=== PATIENT | female | born 1940 | race Caucasian/White ===

== ENCOUNTER 2016-10-09 10:22 | Inpatient (IN) | payer OTHER ==
[~2016-10-09] VITALS: Ht 157.5 cm; Wt 74.8 kg
[2016-10-09] MEDS ORDERED: SALINE FLUSH 10 ML FLUSH PRN (11:40)
[2016-10-09] MEDS ORDERED: BISACODYL EC 5 MG TAB PO PRN (11:40)
[2016-10-09] MEDS ORDERED: ONDANSETRON 4 MG VIAL IV PRN (11:40)
[2016-10-09] MEDS ORDERED: NEB-XOPENEX 1.25 MG/3 ML INH SCH (12:10)
[2016-10-09] MEDS ORDERED: PANTOPRAZOLE 40 MG TAB PO SCH (12:10)
[2016-10-09 13:22] VITALS: BP_SYST 150; RESP 18; TEMP 97.6
[2016-10-09 13:23] VITALS: Ht 157.5 cm; Wt 74.8 kg
[2016-10-09] MEDS ORDERED: KCL CR 10 MEQ CAP PO ONE ×3 (14:10→22:00)
[2016-10-09] MEDS ORDERED: Furosemide 100 MG/10 ML VIAL IV ONE (14:10)
[2016-10-09] MEDS: Carvedilol 3.125 MG TAB PO SCH ×2 (14:15→20:23)
[2016-10-09] MEDS: ESCITALOPRAM 10 MG TAB PO SCH (14:16)
[2016-10-09] MEDS: DILTIAZEM CD 120 MG CAP PO SCH (14:17)
[2016-10-09] MEDS: DIGOXIN 0.125 MG TAB PO SCH (15:15)
[2016-10-09 15:19] VITALS: RESP 18
[2016-10-09] MEDS: NEB-XOPENEX 0.63 MG/3 ML INH SCH ×2 (15:23→19:00)
[2016-10-09] MEDS: CEFTRIAXONE 1 GM in SODIUM CHLORIDE 0.9% 50 ML IV SCH (15:25)
[2016-10-09] MEDS: ACETAMINOPHEN 325 MG TAB PO PRN ×2 (15:26→22:48)
[2016-10-09] MEDS: PANTOPRAZOLE 40 MG TAB PO SCH (15:27)
[2016-10-09] MEDS ORDERED: NEB-XOPENEX 0.63 MG/3 ML INH SCH (19:00)
[2016-10-09] MEDS: NEB-BUDESONIDE 0.5 MG INH SCH (19:00)
[2016-10-09 20:04] VITALS: BP_SYST 136; RESP 18; TEMP 98
[2016-10-09] MEDS: POLYETHYLENE GLYCOL 17 GM PACKET PO SCH (20:22)
[2016-10-09] MEDS: CARBIDOPA PO SCH (20:22)
[2016-10-09] MEDS: MONTELUKAST 10 MG TAB PO SCH (20:22)
[2016-10-09] MEDS: LEVODOPA PO SCH (20:22)
[2016-10-09] MEDS: DONEPEZIL HCL 5 MG TAB PO SCH (20:23)
[2016-10-09] MEDS: DOCUSATE SOD 100 MG CAP PO SCH (20:23)
[2016-10-09] MEDS: SALINE FLUSH 10 ML FLUSH SCH (20:27)
[2016-10-09 23:26] VITALS: BP_SYST 113; RESP 16; TEMP 97.5
[2016-10-10] VITALS (18 sets, daily range): BP systolic 148–184; RESP 16–32; TEMP 97.2–98.2
[2016-10-10] MEDS: SODIUM CHLORIDE 0.9% FLUSH BAG 500 ML IV SCH (04:32)
[2016-10-10] MEDS: PANTOPRAZOLE 40 MG TAB PO SCH ×2 (06:34→20:47)
[2016-10-10] MEDS: NEB-BUDESONIDE 0.5 MG INH SCH ×2 (08:22→20:16)
[2016-10-10] MEDS: NEB-XOPENEX 0.63 MG/3 ML INH SCH ×2 (08:22→20:16)
[2016-10-10] MEDS ORDERED: EPOETIN 40,000 UNIT VIAL SUBQ ONE (09:00)
[2016-10-10] MEDS: SALINE FLUSH 10 ML FLUSH SCH ×2 (09:14→20:49)
[2016-10-10] MEDS: CEFTRIAXONE 1 GM in SODIUM CHLORIDE 0.9% 50 ML IV SCH (09:15)
[2016-10-10] MEDS: ESCITALOPRAM 10 MG TAB PO SCH (09:17)
[2016-10-10] MEDS: Furosemide 40 MG TAB PO SCH (09:17)
[2016-10-10] MEDS: Carvedilol 3.125 MG TAB PO SCH ×2 (09:17→20:48)
[2016-10-10] MEDS: ENOXAPARIN 30 MG/0.3 ML SYR SUBQ SCH (09:17)
[2016-10-10] MEDS: KCL CR 10 MEQ CAP PO SCH (09:18)
[2016-10-10] MEDS: DILTIAZEM CD 120 MG CAP PO SCH (09:24)
[2016-10-10] MEDS: ACETAMINOPHEN 325 MG TAB PO PRN ×2 (09:25→21:04)
[2016-10-10] MEDS ORDERED: Furosemide 20 MG/2 ML VIAL IV ONE ×2 (09:50)
[2016-10-10] MEDS ORDERED: Furosemide 40 MG/4 ML VIAL IV ONE (09:55)
[2016-10-10] MEDS ORDERED: LISINOPRIL 20 MG TAB PO ONE (10:45)
[2016-10-10] MEDS: BENZONATATE 100 MG CAP PO SCH ×3 (10:45→21:02)
[2016-10-10] MEDS: IRON SUCROSE COMPLEX 400 MG in SODIUM CHLORIDE 0.9% 250 ML IV SCH (11:28)
[2016-10-10] MEDS ORDERED: KCL CR 10 MEQ CAP PO ONE ×3 (12:00→21:00)
[2016-10-10] MEDS: PROMETHAZINE/COD 5 ML UDC PO PRN (20:46)
[2016-10-10] MEDS: CARBIDOPA PO SCH (20:47)
[2016-10-10] MEDS: DOCUSATE SOD 100 MG CAP PO SCH (20:47)
[2016-10-10] MEDS: LEVODOPA PO SCH (20:47)
[2016-10-10] MEDS: MEMANTINE 5 MG TAB PO SCH (20:47)
[2016-10-10] MEDS: MONTELUKAST 10 MG TAB PO SCH (20:47)
[2016-10-10] MEDS: DONEPEZIL HCL 5 MG TAB PO SCH (20:48)
[2016-10-10] MEDS: POLYETHYLENE GLYCOL 17 GM PACKET PO SCH (20:49)
[2016-10-10] MEDS: NEOMYCIN TOPICAL SCH ×2 (20:49→21:06)
[2016-10-10] MEDS: POLYMYXIN B TOPICAL SCH ×2 (20:49→21:06)
[2016-10-10] MEDS: BACITRACIN TOPICAL SCH ×2 (20:49→21:06)
[2016-10-10] MEDS ORDERED: POLYETHYLENE GLYCOL 17 GM PACKET PO SCH (21:00)
[2016-10-11] VITALS (12 sets, daily range): BP systolic 126–160; RESP 18–22; TEMP 97–98.7
[2016-10-11] MEDS: NEB-BUDESONIDE 0.5 MG INH SCH ×2 (06:35→20:10)
[2016-10-11] MEDS: NEB-XOPENEX 0.63 MG/3 ML INH SCH ×2 (06:35→20:10)
[2016-10-11] MEDS: SODIUM CHLORIDE 0.9% FLUSH BAG 500 ML IV SCH (06:43)
[2016-10-11] MEDS: PANTOPRAZOLE 40 MG TAB PO SCH ×2 (06:43→17:15)
[2016-10-11] MEDS: ENOXAPARIN 30 MG/0.3 ML SYR SUBQ SCH (09:12)
[2016-10-11] MEDS: BENZONATATE 100 MG CAP PO SCH ×3 (09:12→22:34)
[2016-10-11] MEDS: KCL CR 10 MEQ CAP PO SCH (09:12)
[2016-10-11] MEDS: DILTIAZEM CD 120 MG CAP PO SCH (09:13)
[2016-10-11] MEDS: ESCITALOPRAM 10 MG TAB PO SCH (09:13)
[2016-10-11] MEDS: NEOMYCIN TOPICAL SCH ×2 (09:13→22:44)
[2016-10-11] MEDS: Carvedilol 3.125 MG TAB PO SCH ×2 (09:13→22:34)
[2016-10-11] MEDS: LISINOPRIL 20 MG TAB PO SCH (09:13)
[2016-10-11] MEDS: Furosemide 40 MG TAB PO SCH (09:13)
[2016-10-11] MEDS: BACITRACIN TOPICAL SCH ×2 (09:13→22:44)
[2016-10-11] MEDS: POLYMYXIN B TOPICAL SCH ×2 (09:13→22:44)
[2016-10-11] MEDS: SALINE FLUSH 10 ML FLUSH SCH ×2 (09:14→22:36)
[2016-10-11] MEDS: VENOFER 100 MG/5 ML VL IV SCH (09:16)
[2016-10-11] MEDS: IRON SUCROSE COMPLEX 400 MG in SODIUM CHLORIDE 0.9% 250 ML IV SCH (09:16)
[2016-10-11] MEDS: ACETAMINOPHEN 325 MG TAB PO PRN (09:33)
[2016-10-11] MEDS: DIGOXIN 0.125 MG TAB PO SCH (13:06)
[2016-10-11] MEDS ORDERED: Furosemide 40 MG/4 ML VIAL IV ONE (15:45)
[2016-10-11] MEDS ORDERED: CYANOCOBALAMIN 1000 MCG/ML VIAL IM ONE (15:45)
[2016-10-11] MEDS ORDERED: KCL CR 10 MEQ CAP PO ONE (18:00)
[2016-10-11] MEDS: DOCUSATE SOD 100 MG CAP PO SCH (22:33)
[2016-10-11] MEDS: MEMANTINE 5 MG TAB PO SCH (22:34)
[2016-10-11] MEDS: MONTELUKAST 10 MG TAB PO SCH (22:34)
[2016-10-11] MEDS: CARBIDOPA PO SCH (22:34)
[2016-10-11] MEDS: LEVODOPA PO SCH (22:34)
[2016-10-12] MEDS: DONEPEZIL HCL 5 MG TAB PO SCH ×2 (00:15→21:13)
[2016-10-12] MEDS: PROMETHAZINE/COD 5 ML UDC PO PRN (00:16)
[2016-10-12 03:23] VITALS: BP_SYST 92; RESP 20; TEMP 98.3
[2016-10-12] MEDS: ACETAMINOPHEN 325 MG TAB PO PRN (03:30)
[2016-10-12] MEDS: SODIUM CHLORIDE 0.9% FLUSH BAG 500 ML IV SCH (05:07)
[2016-10-12] MEDS: PANTOPRAZOLE 40 MG TAB PO SCH ×2 (06:23→15:57)
[2016-10-12] MEDS: NEB-XOPENEX 0.63 MG/3 ML INH SCH ×3 (06:29→22:59)
[2016-10-12] MEDS: NEB-BUDESONIDE 0.5 MG INH SCH ×3 (06:29→22:59)
[2016-10-12 07:55] VITALS: BP_SYST 138; RESP 16; TEMP 97.2
[2016-10-12] MEDS: SALINE FLUSH 10 ML FLUSH SCH ×2 (09:17→21:12)
[2016-10-12] MEDS: ENOXAPARIN 30 MG/0.3 ML SYR SUBQ SCH (09:18)
[2016-10-12] MEDS: ESCITALOPRAM 10 MG TAB PO SCH (09:20)
[2016-10-12] MEDS: CYANOCOBALAMIN 1000 MCG/ML VIAL IM SCH (09:20)
[2016-10-12] MEDS: BENZONATATE 100 MG CAP PO SCH ×3 (09:20→21:13)
[2016-10-12] MEDS: KCL CR 10 MEQ CAP PO SCH (09:21)
[2016-10-12] MEDS: LISINOPRIL 20 MG TAB PO SCH (09:21)
[2016-10-12] MEDS: Furosemide 40 MG TAB PO SCH (09:21)
[2016-10-12] MEDS: Carvedilol 3.125 MG TAB PO SCH ×2 (09:22→21:13)
[2016-10-12] MEDS: BACITRACIN TOPICAL SCH ×2 (09:40→21:14)
[2016-10-12] MEDS: NEOMYCIN TOPICAL SCH ×2 (09:40→21:14)
[2016-10-12] MEDS: POLYMYXIN B TOPICAL SCH ×2 (09:40→21:14)
[2016-10-12 11:43] VITALS: BP_SYST 132; RESP 18; TEMP 97.3
[2016-10-12] MEDS ORDERED: MISSING DOSE XX ONE (11:45)
[2016-10-12] MEDS: DILTIAZEM CD 120 MG CAP PO SCH (12:09)
[2016-10-12] MEDS: VENOFER 100 MG/5 ML VL IV SCH (14:00)
[2016-10-12 15:26] VITALS: BP_SYST 153; RESP 20; TEMP 98.5
[2016-10-12 20:21] VITALS: BP_SYST 141; RESP 20; TEMP 98.4
[2016-10-12] MEDS ORDERED: QUEtiapine 25 MG TAB PO SCH (21:00)
[2016-10-12] MEDS: DOCUSATE SOD 100 MG CAP PO SCH (21:00)
[2016-10-12] MEDS: MONTELUKAST 10 MG TAB PO SCH (21:13)
[2016-10-12] MEDS: CARBIDOPA PO SCH (21:13)
[2016-10-12] MEDS: LEVODOPA PO SCH (21:13)
[2016-10-12] MEDS: MEMANTINE 5 MG TAB PO SCH (21:13)
[2016-10-12 23:12] VITALS: BP_SYST 161; RESP 20; TEMP 98.2
[2016-10-13 03:37] VITALS: BP_SYST 154; RESP 16; TEMP 98.5
[2016-10-13] MEDS: SODIUM CHLORIDE 0.9% FLUSH BAG 500 ML IV SCH (05:39)
[2016-10-13] MEDS: PANTOPRAZOLE 40 MG TAB PO SCH ×2 (06:04→15:37)
[2016-10-13] MEDS: NEB-BUDESONIDE 0.5 MG INH SCH (06:21)
[2016-10-13] MEDS: NEB-XOPENEX 0.63 MG/3 ML INH SCH (06:22)
[2016-10-13 07:26] VITALS: BP_SYST 142; RESP 18; TEMP 98.1
[2016-10-13] MEDS: SALINE FLUSH 10 ML FLUSH SCH (08:29)
[2016-10-13] MEDS: CYANOCOBALAMIN 1000 MCG/ML VIAL IM SCH (08:29)
[2016-10-13] MEDS: ENOXAPARIN 30 MG/0.3 ML SYR SUBQ SCH (08:30)
[2016-10-13] MEDS: ESCITALOPRAM 10 MG TAB PO SCH (08:30)
[2016-10-13] MEDS: Carvedilol 3.125 MG TAB PO SCH (08:31)
[2016-10-13] MEDS: LISINOPRIL 20 MG TAB PO SCH (08:31)
[2016-10-13] MEDS: POLYMYXIN B TOPICAL SCH (08:31)
[2016-10-13] MEDS: BENZONATATE 100 MG CAP PO SCH ×2 (08:31→15:37)
[2016-10-13] MEDS: NEOMYCIN TOPICAL SCH (08:31)
[2016-10-13] MEDS: KCL CR 10 MEQ CAP PO SCH (08:31)
[2016-10-13] MEDS: BACITRACIN TOPICAL SCH (08:31)
[2016-10-13] MEDS: DILTIAZEM CD 120 MG CAP PO SCH (08:32)
[2016-10-13] MEDS ORDERED: Furosemide 100 MG/10 ML VIAL IV SCH (09:00)
[2016-10-13 10:24] VITALS: BP_SYST 135; RESP 18; TEMP 98.4
[2016-10-13] MEDS: DIGOXIN 0.125 MG TAB PO SCH (11:08)
[2016-10-13 15:06] VITALS: BP_SYST 125; RESP 18; TEMP 97.4
[2016-10-13] MEDS ORDERED: ALU/MAG/SIM 30 ML UDC PO ONE (16:00)
[2016-10-13 16:13] VITALS: BP_SYST 125; RESP 18; TEMP 97.4
== END 2016-10-13 16:50 | disposition home or self-care (01) | DRG 811 ==
LOC: ENRESERVDT → ENRESERVTM → 3NT 11:26 → ENPENDDIS 14:08 → OBSVTOIN 14:08
PROVIDERS: ADMIT Internal Medicine; ATTEND Internal Medicine
DX: D50.9 Iron deficiency anemia, unspecified (principal); I50.31 Acute diastolic (congestive) heart failure; I27.2 Other secondary pulmonary hypertension; F03.90 Unspecified dementia, unspecified severity, without behavioral disturbance, psychotic disturbance, mood disturbance, and anxiety; J44.9 Chronic obstructive pulmonary disease, unspecified; I11.0 Hypertensive heart disease with heart failure; E09.9 Drug or chemical induced diabetes mellitus without complications; F32.9 Major depressive disorder, single episode, unspecified; R32 Unspecified urinary incontinence; I48.2 Chronic atrial fibrillation; M81.0 Age-related osteoporosis without current pathological fracture; R73.9 Hyperglycemia, unspecified; T38.0X5A Adverse effect of glucocorticoids and synthetic analogues, initial encounter; H91.90 Unspecified hearing loss, unspecified ear; E78.5 Hyperlipidemia, unspecified; I34.0 Nonrheumatic mitral (valve) insufficiency; E87.6 Hypokalemia; G47.33 Obstructive sleep apnea (adult) (pediatric); Z79.82 Long term (current) use of aspirin; Z86.73 Personal history of transient ischemic attack (TIA), and cerebral infarction without residual deficits
CPT/HCPCS: 36430; 36600; 71020; 80048; 80053; 80061; 80162; 82274; 82607; 82728; 82746; 82803; 83540; 83735; 83880; 84439; 84443; 84466; 85014; 85018; 85025; 85652; 86141; 86850; 86900; 86901; 86923; 93005; 93306; 94640; 94799